=== PATIENT | female | born 2000 | race Caucasian/White ===

== ENCOUNTER 2021-12-15 09:52 | Emergency (ER) | payer OTHER, SELFPAY ==
[2021-12-15 09:56] VITALS: BP 118/59; PULSE 71; RESP 14; TEMP 37; O2SAT 99; BMI 21.9
== END 2021-12-15 11:38 | disposition left against medical advice (07) ==
PROVIDERS: Emergency Provider Emergency Medicine
CPT/HCPCS: 99281

== ENCOUNTER 2024-06-13 12:11 | Emergency (ER) | payer OTHER, SELFPAY ==
[2024-06-13 12:29] VITALS: BP 119/57; PULSE 89; RESP 18; TEMP 37.2; O2SAT 97; BMI 21.9
[2024-06-13] MEDS: ONDANSETRON 4 MG ODT SL (13:44)
--- NOTE | 2024-06-13 14:33 | ED.NAVMDI ---
HPI - Nausea/Vomiting/Diarrhea <SARAH Rea - Last Filed: 06/13/24 14:48> General Chief complaint: Nausea/Vomiting/Diarrhea Stated complaint: N/V/D Time Seen by Provider: 06/13/24 13:21 Source: patient and family Mode of arrival: Ambulatory History of Present Illness HPI Narrative: 23-year-old female, daily smoker, presents to the emergency department with complaints of body aches, fatigue, nausea, vomiting and diarrhea since last evening. Patient's daughter had similar symptoms over the last 2 days but is gradually improving. Patient's spouse has identical symptoms and started within 15 minutes of themselves. Patient and spouse did eat the same pizza prior to feeling ill but contained no hamburger or sausage. Both have eaten from this place on a frequent basis. Related Data Previous Rx's Medication Instructions Recorded ondansetron 4 mg disintegrating 4 mg PO Q6H PRN nausea and 06/13/24 tablet vomiting #30 tabs Allergies Allergy/AdvReac Type Severity Reaction Status Date / Time No Known Drug Allergies Allergy Verified 12/15/21 10:00 Review of Systems <SARAH Rea - Last Filed: 06/13/24 14:48> Review of Systems Narrative: Narrative: See HPI. GENERAL: Denies chills, fever, sweats. Endorses fatigue and body aches. HEENT: Denies sinus pain, ear pain, sore throat, difficulty swallowing, dizziness. Endorses sinus drainage. RESPIRATORY: Denies dyspnea, cough, wheezing, sputum. CARDIOVASCULAR: Denies chest pain, palpitations, edema. GASTROINTESTINAL: Denies abdominal pain, constipation. Endorses nausea, vomiting diarrhea. : Denies dysuria, frequency, incontinence, hematuria, urinary retention, flank pain. MSK: Denies weakness, joint pain, or bony pain. SKIN: Denies rash, skin lesions, or pruritis. NEUROLOGIC: Denies weakness, dizziness, headache, numbness, confusion. Patient History <SARAH Rea - Last Filed: 06/13/24 14:48> Social History Smoking Status: Current every day smoker Smoking Status: Current every day smoker tobacco type: vaping alcohol intake frequency: 3 or more drinks per day Exam <SARAH Rea - Last Filed: 06/13/24 14:48> Narrative Exam Narrative: Exam Narrative: GENERAL: This is a well-nourished, well-developed patient, in no acute distress. HEAD: Atraumatic. Normocephalic. EYES: Pupils equal round and reactive. No scleral icterus, injection or drainage. ENT: Nose without bleeding, purulent drainage. Throat without erythema, tonsillar hypertrophy or exudate. Uvula midline. Airway patent. TMs and canals clear, with bilateral effusion. NECK: Trachea midline. No JVD or lymphadenopathy. Nontender. CARDIOVASCULAR: Regular rate and rhythm without murmurs, peripheral pulses intact, cap refill <2 sec. RESPIRATORY: Breath sounds equal and clear bilaterally. No wheezes, rales, or rhonchi. No cough. No increased respiratory effort. No accessory muscle use. GASTROINTESTINAL: Abdomen soft, non-tender, nondistended without guarding or rebound. No suprapubic pain. No flank pain. MSK: Moves all extremities. Normal range of motion, no clubbing or edema. Neurovascularly intact. NEURO: A&O x 3. SKIN: Warm, dry, no rashes or lesions noted. Initial Vital Signs Initial Vital Signs: Vital Signs Temperature 98.9 F 06/13/24 12:29 Pulse Rate 89 06/13/24 12:29 Respiratory Rate 18 06/13/24 12:29 Blood Pressure 119/57 L 06/13/24 12:29 Pulse Oximetry 97 06/13/24 12:29 Oxygen Delivery Method Room Air 06/13/24 12:29 Reviewed <Lucy Bradley DO - Last Filed: 06/13/24 18:36> Initial Vital Signs Initial Vital Signs: Vital Signs Temperature 98.9 F 06/13/24 12:29 Pulse Rate 89 06/13/24 12:29 Respiratory Rate 18 06/13/24 12:29 Blood Pressure 119/57 L 06/13/24 12:29 Pulse Oximetry 97 06/13/24 12:29 Oxygen Delivery Method Room Air 06/13/24 12:29 Course <SARAH Rea - Last Filed: 06/13/24 14:48> Orders Ordered: Discontinued Medications Ondansetron HCl (Ondansetron 4 Mg/2 Ml Inj) 4 mg IV NOW PRN PRN Reason: Nausea And Vomiting Ondansetron HCl (Ondansetron 4 Mg Odt) 4 mg SL NOW PRN PRN Reason: Nausea And Vomiting Last Admin: 06/13/24 13:44 Dose: 4 mg Documented By: ZGG Vital Signs Vital signs: Vital Signs - 8 hr 06/13/24 12:29 06/13/24 15:17 Temperature 98.9 F Pulse Rate 89 87 Respiratory Rate 18 14 Blood Pressure 119/57 L 94/62 Pulse Oximetry 97 98 Oxygen Delivery Method Room Air Room Air <Lucy Bradley DO - Last Filed: 06/13/24 18:36> Orders Ordered: Discontinued Medications Ondansetron HCl (Ondansetron 4 Mg/2 Ml Inj) 4 mg IV NOW PRN PRN Reason: Nausea And Vomiting Ondansetron HCl (Ondansetron 4 Mg Odt) 4 mg SL NOW PRN PRN Reason: Nausea And Vomiting Last Admin: 06/13/24 13:44 Dose: 4 mg Documented By: ZGG Vital Signs Vital signs: Vital Signs - 8 hr 06/13/24 12:29 06/13/24 15:17 Temperature 98.9 F Pulse Rate 89 87 Respiratory Rate 18 14 Blood Pressure 119/57 L 94/62 Pulse Oximetry 97 98 Oxygen Delivery Method Room Air Room Air MDM - Nausea/Vomiting/Diarrhea <SARAH Rea - Last Filed: 06/13/24 14:48> Differential Diagnosis Differential diagnosis: Likely dehydration and other (Viral illness) MDM Narrative Medical decision making narrative: 23-year-old female with nausea, vomiting and diarrhea x1 day. Assessment was encouraging and clinical findings were suggestive of a viral illness. has identical symptoms and was negative for COVID, influenza and RSV. Patient was given ondansetron that resolved the nausea and is now able to drink normally and without difficulty. Discussed plan of care and return precautions with patient, verbalized understanding was agreeable with course of action. Discharge Plan Departure Patient Disposition: Home Clinical Impression: Viral illness Instructions: DI for Vomiting -- Adult Activity Restrictions/Additional Instructions: *You have been diagnosed with a viral illness. My assessment was encouraging and I suspect you have a viral illness. I recommend supportive care that includes rest, increased oral hydration and [id number] medications as needed for discomfort. I will prescribe some antinausea medication that should allow you to stay well hydrated. For any worsening symptoms, please feel free to return to the emergency department. *What to do: *Please continue to take your regular medications as directed. [ ] New medication prescriptions sent to your pharmacy: [ ] [ ] New medication written as a paper prescription [ x] No new medications given *Please follow up with your primary care provider in 2-3 days, call for an appointment. Let them know you were seen in the Emergency Department and that we ask that you be seen in follow up. We will electronically transmit a record of today's note if your PCP is in our system *If you do not have a primary care provider please contact the [facility] Resource line at [phone]. They will ask some questions about your medical history and help get you set up with a doctor in the community. ? Return to ER if you should have any new, worsening or concerning symptoms, such as worsening pain, severe headache, confusion, chest pain, difficulty breathing, fever greater than 101 F, shaking chills, persistent vomiting to the point that you cannot drink fluids, or other new or worsening symptoms. Prescriptions: New ondansetron 4 mg tablet,disintegrating 4 mg PO Q6H PRN (Reason: nausea and vomiting) Qty: 30 0RF Stand Alone Forms: Patient Portal/API/Survey ED Sign-out <Lucy Bradley DO - Last Filed: 06/13/24 18:36> Cosign ED Attending Coskajalature Attestation: I was immediately available in the department for consultation.
[2024-06-13 15:17] VITALS: BP 94/62; PULSE 87; RESP 14; O2SAT 98
== END 2024-06-13 15:18 | disposition home or self-care (01) ==
PROVIDERS: Emergency Provider Registered Nurse
DX: B34.9 Viral infection, unspecified (principal)
CPT/HCPCS: 99283